=== PATIENT | male | born 1955 | race Caucasian/White ===

== ENCOUNTER 2016-12-26 17:48 | Emergency (ER) | payer BC ==
[2016-12-26 18:03] VITALS: BP 132/67; PULSE 67; O2SAT 97
--- NOTE | 2016-12-26 19:50 | ERPHSYRPT ---
- History of Present Illness Time Seen by Provider: 12/26/16 19:38 Source: patient Exam Limitations: no limitations Patient Subjective Stated Complaint: PT WAS CUTTING A LOG ON THE GROUND WHEN A LOG FROM ABOVE FELL ON HIM ON THE LEFT SIDE. KNOCKED PT DOWN TO THE GROUND. PT DENIES BLACKING OUT. Triage Nursing Assessment: PT ALERT X 3. AMBULATED INTO THE ER. SKIN PINK WARM DRY. RESPIRATIONS EVEN AND UNLABORED. NO BRUISES NOTED TO THE LEFT SHOULDER. PT UNABLE TO LEFT ARM ABOVE WAIST. PT CAN MOVE ARM OUT TO THE SIDE AND IN FRONT OF PT. Physician History: YESTERDAY AT HOME PT WAS CUTTING A TREE AND A BRANCH FROM ANOTHER TREE FELL AND HIT HIS LEFT SHOULDER WITH RESULTANT PAIN IN THE LEFT SHOULDER. PT DENIES LOC, NUMBNESS OF THE LEFT HAND OR ANY OTHER PAIN. PT DENIES PRIOR INJURY TO THE LEFT SHOULDER. Allergies/Adverse Reactions: No Known Drug Allergies Allergy (Unverified 12/26/16 18:22) Home Medications: Aspirin 81 mg PO DAILY 12/26/16 [History] Metformin HCl [Glucophage] 500 mg PO BID 12/26/16 [History] Sertraline HCl [Zoloft] 25 mg PO DAILY 12/26/16 [History] Hx Tetanus, Diphtheria Vaccination/Date Given: No Hx Influenza Vaccination/Date Given: No Hx Pneumococcal Vaccination/Date Given: No Immunizations Up to Date: Yes - Review of Systems Musculoskeletal: Joint Pain (LEFT SHOULDER PAIN) - Past Medical History Pertinent Past Medical History: Yes Neurological History: No Pertinent History ENT History: No Pertinent History Cardiac History: High Cholesterol, Hypertension, Myocardial Infarction ([place]) Respiratory History: No Pertinent History Endocrine Medical History: Diabetes Type II Musculoskeletal History: No Pertinent History GI Medical History: GERD History: No Pertinent History Psycho-Social History: Depression Male Reproductive Disorders: No Pertinent History - Past Surgical History Past Surgical History: Yes Neuro Surgical History: No Pertinent History Cardiac: Cardiac Stent Respiratory: No Pertinent History Gastrointestinal: No Pertinent History Genitourinary: No Pertinent History Musculoskeletal: No Pertinent History Male Surgical History: No Pertinent History Other Surgical History: SINUS SURGERY. STENT PLACEMENT 2000 - Social History Smoking Status: Former smoker Exposure to second hand smoke: No Drug Use: none Patient Lives Alone: No - Nursing Vital Signs Nursing Vital Signs: Initial Vital Signs Temperature 97.9 F Temperature Source Oral Pulse Rate 67 Respiratory Rate 18 Blood Pressure [Right Arm] 132/67 Pain Intensity 10 - Physical Exam General Appearance: alert Shoulder Exam: limited ROM (LEFT SHOULDER HAS ABDUCTION TO 30 DEGREES WITH PAIN. NO BRUISING OF THE LEFT SHOULDER. MILD TENDERNESS OF THE ANTERIOR ASPECT OF THE LEFT SHOULDER. ) Elbow/Forearm Exam: normal ROM Wrist Exam: normal ROM Hand Exam: normal ROM Neuro/Tendon Exam: normal sensation Mental Status Exam: alert, cooperative Skin Exam: warm, dry SpO2 Interpretation: normal SpO2: 97 Oxygen Delivery: Room Air - Course Nursing assessment & vital signs reviewed: Yes - Radiology Exams Left Shoulder X-ray Interpretation: Interpreted by me, No Fracture Ordered Tests: Active Orders 24 hr Category Date Time Status SHOULDER Stat Exams 12/26/16 18:43 Taken - Departure Time of Disposition: 19:57 Departure Disposition: Home Clinical Impression: LEFT SHOULDER SPRAIN/CONTUSION Condition: Fair Critical Care Time: No Instructions: Shoulder Sprain Additional Instructions: FOLLOW UP WITH PRIVATE DOCTOR TOMORROW. WEAR LEFT ARM SLING FOR COMFORT. DO NOT USE LEFT ARM UNTIL PAIN FREE. Prescriptions: Naproxen [Naprosyn] 500 mg PO Q12H PRN PRN #20 tablet PRN Reason: Pain
[2016-12-26] MEDS ORDERED: NORCO 5/325 MG PO ONE (19:57)
[2016-12-26] MEDS ORDERED: NORCO 5/325 MG ONE (20:00)
--- NOTE | 2016-12-27 09:01 | XRAY ---
Indication: Left shoulder pain following injury. Comparison: None 3 views of the left shoulder intact with mild acromioclavicular degenerative arthropathy, greater tuberosity spurring, and tiny humeral head bone island. No other bony, articular, or soft tissue abnormalities.
== END 2016-12-26 20:15 | disposition home or self-care (01) ==
LOC: ED 17:48
DX: S43.402A Unspecified sprain of left shoulder joint, initial encounter (principal); S40.012A Contusion of left shoulder, initial encounter; W20.8XXA Other cause of strike by thrown, projected or falling object, initial encounter
CPT/HCPCS: 73030; 99284; A9270-GY